=== PATIENT | male | born 1995 | race Hispanic/Latino ===

== ENCOUNTER 2019-05-27 15:12 | Inpatient (IN) | payer SELFPAY ==
[~2019-05-27 15:12] MED LIST: Dexamethasone 20 MG/5 ML VIAL ONE; Glycopyrrolate 0.2 MG/ML 5 ML SYRINGE ONE; Iopamidol-370 76% 500 ML 1 ML ONE; Lidocaine 1% PF 5 ML VIAL ONE; PHENYLEPHRINE-NS 100 MCG/ML 10 ML SYRINGE ONE; PROPOFOL 200 MG/20 ML VIAL ONE; Rocuronium Bromide 10 MG/ML (10ML VIAL) ONE; Succinylcholine Chloride 20 MG/ML 10 ml SYRINGE FS ONE
[2019-05-27 15:50] LABS: Hemoglobin 17.7 g/dL (14.0-18.0); Mean Corpuscular HGB CONC 34.2 g/dL (32.0-36.0); Mean Corpuscular Hemoglobin 29.9 pg (27.0-31.0); Mean Corpuscular Volume 87.3 fL (78.0-98.0); RBC Distribution Width 12.3 % (11.5-14.5); Red Blood Cell (RBC) Count 5.94 mill/uL (4.70-6.10); White Blood Cell (WBC) Count 12.4 thou/uL (4.8-10.8)
[2019-05-27] MEDS ORDERED: Piperacillin/Tazobactam 4.5 GM VIAL ONE (16:06)
[2019-05-27 16:15] LABS: Bilirubin Negative (Negative); Blood, Urine 1+ (Negative); Clarity Clear (Clear); Glucose, Urine (Dipstick) Normal (Negative); Leukocyte Negative Leu/uL (Negative); Nitrite Negative (Negative); Protein, Urine (Dipstick) 100 mg/dL (Neg-Trace); Squamous Epithelial 0-3 HPF (0-3); Urobilinogen Normal mg/dL (Less than 2)
[2019-05-27 16:16] LABS: Bacteria/HPF 1+ HPF (None Seen)
[2019-05-27 16:17] LABS: Band 53 % (5-11); Large Platelets SLIGHT; Lymphocytes 2 % (21-51); MDiff Complete? YES; Mean Platelet Volume 12.2 fL (7.4-10.4); Monocytes 2 % (0-10); Neutrophil 39 % (42-75); Ovalocytes SLIGHT = 2-5 cells (100X) (0-1/hpf); Platelet Count 117 thou/uL (130-400); Platelet Morphology Comment Appears Decreased; Reactive Lymphocytes 4 % (0-10); Reflex for Review?? YES
[2019-05-27 16:19] LABS: ALT (SGPT) 13 U/L (8-55); AST (SGOT) 20 U/L (5-34); Albumin 4.2 g/dL (3.5-5.0); Alkaline Phosphatase 71 U/L (40-110); Anion Gap 16 mmol/L (10-20); BUN (Urea Nitrogen) 24 mg/dL (8.9-20.6); Bilirubin, Total 1.2 mg/dL (0.2-1.2); Calc. Creatinine Clearance 0 mL/min (70-130); Calcium 9.7 mg/dL (7.8-10.44); Carbon Dioxide 23 mmol/L (22-29); Chloride 94 mmol/L (98-107); Estimated GFR-MDRD 47; Globulin 3.7 g/dL (2.4-3.5); Glucose 107 mg/dL (70-105); Lipase 7 U/L (8-78); Potassium 3.9 mmol/L (3.5-5.1); Protein, Total 7.9 g/dL (6.0-8.3); Sodium 129 mmol/L (136-145)
--- NOTE | 2019-05-27 16:31 | CT ---
CT ABDOMEN AND PELVIS WITH IV CONTRAST: Date: 05-27-2019 Provided Clinical History: Abdominal pain FINDINGS: The visualized lung bases are free of significant opacity. The solid abdominal organs demonstrate no significant abnormality. There is an appendicolith at the base of the appendix with marked distention of the appendix by fluid density associated with mural enhancement, compatible with acute appendicitis. There is diffuse flui d filled small bowel proximally. There is a somewhat focal area of transition to normal caliber bowel within the central pelvis. There is a small amount of free fluid present within the right parapelvic gutter and hepatorenal fossa. There is no evidence for pneumoperitoneum. There is no evidence for pn eumotosis or portal venous gas. The regional major vascular structures appear unremarkable. There is no evidence for regional lymphno de enlargement. The osseous structures demonstrate no concerning lytic or blastic lesions. A bone island is noted inv olving the left femoral neck anteriorly. IMPRESSION: 1. Findings compatible with acute appendicitis. 2. Conspicuous fluid distention of proximal small bowel, ileus versus possibly concurrent small bowel obstruction. POS: JANUSZ
[2019-05-27] MEDS ORDERED: Lidocaine 2% Jelly 5 ML TUBE ONE (17:14)
[2019-05-27] MEDS ORDERED: Fentanyl 100 MCG/2 ML VIAL ONE ×4 (17:14→19:51)
--- NOTE | 2019-05-27 18:12 | HP ---
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 He was evaluated by Dr. Mackey. He is noted to have a rigid abdomen. He underwent a CAT scan demonstrating findings consistent with acute appendicitis and ileus, distended small bowel. Exam reveals peritonitis, diffuse tenderness. Plan is for laparotomy, abdominal washout, appendectomy is indicated. The patient has acute kidney injury with elevated BUN and creatinine, hyponatremia, has received 2 L of fluid with another going in. ALLERGIES: NONE. TOBACCO: None. ALCOHOL: Socially. MEDICATIONS: None. PAST SURGICAL HISTORY: Noncontributory. PAST MEDICAL HISTORY: Noncontributory. PHYSICAL EXAMINATION: VITAL SIGNS: Heart rate 120, temperature 100.4 degrees, and blood pressure 160/80. HEAD, EARS, EYES, NOSE, AND THROAT: Unremarkable. LUNGS: Clear to auscultation. CARDIAC: Sinus tachycardia. ABDOMEN: Rigid, diffuse peritoneal signs, distended, and tympanitic. The patient can barely get out of bed to move to go to the bathroom. EXTREMITIES: Unremarkable. NEUROLOGIC: Intact. GCS 15. LYMPHS: No lymphadenopathy. LABORATORY DATA: Sodium 129, potassium 3.9, BUN 24, creatinine 1.76, and bilirubin 1.2. White count 12, hemoglobin 17, band count 53%. ASSESSMENT AND PLAN: Acute appendicitis rupture with peritonitis with acute kidney injury and dehydration, severe. Aggressively rehydrate. He has received Zosyn. Plan laparotomy, abdominal washout, appendectomy. He will need an NG tube, Meng perioperatively. I have used a Water Plant Maintenance Mechanic Service to explain these things to the patient. I had explained the risks of infection, bleeding, reoperation, blood transfusion. Questions answered. He consents. Job ID: [id number]
[2019-05-27] MEDS ORDERED: Ondansetron PF 4 MG/2 ML Vial IVP PRN ×2 (19:12→19:35)
[2019-05-27] MEDS ORDERED: Morphine 2 MG/ML SYRINGE SLOW IVP PRN (19:12)
[2019-05-27] MEDS ORDERED: hydrALAZINE 20 MG/ML VIAL SLOW IVP PRN (19:12)
[2019-05-27] MEDS ORDERED: Morphine 4 MG/ML VIAL SLOW IVP PRN (19:12)
[2019-05-27] MEDS ORDERED: Acetaminophen 650 MG Suppository PR PRN (19:16)
[2019-05-27] MEDS ORDERED: Ketorolac Tromethamine 30 MG/ML VIAL IVP PRN (19:16)
[2019-05-27] MEDS ORDERED: Acetaminophen 500 MG TAB PO PRN (19:16)
--- NOTE | 2019-05-27 19:28 | OP ---
DATE OF PROCEDURE: 05/27/2019 PREOPERATIVE DIAGNOSIS: Perforated appendicitis with peritonitis. POSTOPERATIVE DIAGNOSIS: Perforated appendicitis with peritonitis. PROCEDURES PERFORMED: Laparotomy, abdominal washout, appendectomy. ANESTHESIA: General. ESTIMATED BLOOD LOSS: Negligible. Wound left open for healing by secondary intention. Wound VAC application tomorrow. DESCRIPTION OF PROCEDURE: The patient was taken to the operating room, where under general anesthesia, NG tube was placed. Meng catheter placed. Abdomen clipped of hair, prepared with ChloraPrep and draped in routine fashion. Incision was made in the midline, centered about the umbilicus, carried down to the skin and subcutaneous tissue, entered the abdominal cavity sharply. There was abundant cloudy purulent material evacuated. Abdominal cavity irrigated. Irrigant evacuated. Appendix identified, acutely inflamed. Mesoappendix was taken down with the LigaSure. The stump of the appendix divided in the cecal stump with a CLOVIS blue load stapler. Stapled the cecal stump, hemostatic and secured. His appendix removed, noted to be perforated. The patient tolerated the procedure well. Abdominal cavity thoroughly irrigated with about 6 L of saline solution. Irrigant evacuated. Hemostasis was obtained. Instrument, sponge, and needle counts were correct. Midline fascia closed with #1 PDS. Skin and subcutaneous tissue irrigated and skin was loosely approximated with shala and a gauze dressing applied for wound VAC application tomorrow. Job ID: [id number]
[2019-05-27] MEDS ORDERED: Promethazine HCl 25 MG/ML VIAL SLOW IVP PRN (19:29)
[2019-05-27] MEDS ORDERED: Ondansetron HCl/PF 4 MG/2 ML Vial IVP PRN (19:29)
[2019-05-27] MEDS ORDERED: Promethazine HCl 25 MG/ML VIAL IM PRN ×2 (19:29→19:35)
[2019-05-27] MEDS ORDERED: Zolpidem Tartrate 5 MG TAB PO PRN (19:35)
[2019-05-27] MEDS ORDERED: diphenhydrAMINE 50 MG/ML VIAL IVP PRN (19:35)
[2019-05-27] MEDS ORDERED: Naloxone HCl 0.4 mg/ml Vial IV PRN (19:35)
[2019-05-27] MEDS ORDERED: diphenhydrAMINE 50 MG/ML VIAL IM PRN (19:35)
[2019-05-27] MEDS ORDERED: diphenhydrAMINE 25 MG CAP PO PRN (19:35)
[2019-05-27] MEDS ORDERED: Communication Order-Pharmacy FS SCH (19:45)
[2019-05-27] MEDS: Piperacillin/Tazobactam 4.5 GM in Sodium Chloride 0.9% 100 ML IVPB SCH (22:53)
[2019-05-27] MEDS: Sodium Chloride 0.9% 1,000 ML IV SCH (22:53)
[2019-05-27] MEDS: Enoxaparin Sodium 40 MG/0.4 ML SYRINGE SC SCH (22:53)
[2019-05-27 22:59] VITALS: BMI 21.3
[2019-05-28] MEDS: Piperacillin/Tazobactam 4.5 GM in Sodium Chloride 0.9% 100 ML IVPB SCH ×4 (04:37→22:19)
[2019-05-28] MEDS: Sodium Chloride 0.9% 1,000 ML IV SCH ×4 (04:39→20:16)
[2019-05-28] MEDS ORDERED: Chloraseptic Spray 180 ml Bottle PO PRN (05:06)
[2019-05-28 05:36] LABS: Anion Gap 11 mmol/L (10-20); BUN (Urea Nitrogen) 24 mg/dL (8.9-20.6); Calc. Creatinine Clearance 73 mL/min (70-130); Calcium 8.3 mg/dL (7.8-10.44); Carbon Dioxide 24 mmol/L (22-29); Chloride 106 mmol/L (98-107); Estimated GFR-MDRD 56; Glucose 132 mg/dL (70-105); Potassium 4.2 mmol/L (3.5-5.1); Sodium 137 mmol/L (136-145)
[2019-05-28 05:40] LABS: Band 42 % (5-11); Hemoglobin 14.6 g/dL (14.0-18.0); Large Platelets SLIGHT; Lymphocytes 1 % (21-51); MDiff Complete? YES; Mean Corpuscular HGB CONC 32.4 g/dL (32.0-36.0); Mean Corpuscular Hemoglobin 28.6 pg (27.0-31.0); Mean Corpuscular Volume 88.3 fL (78.0-98.0); Mean Platelet Volume 11.7 fL (7.4-10.4); Monocytes 6 % (0-10); Neutrophil 51 % (42-75); Platelet Count 120 thou/uL (130-400); RBC Distribution Width 12.5 % (11.5-14.5); White Blood Cell (WBC) Count 9.9 thou/uL (4.8-10.8)
[2019-05-28] MEDS ORDERED: FLU VACC QS2019-20(6MOS UP)/PF 60 MCG/0.5 ML SYRINGE IM ONE (09:00)
[2019-05-28] MEDS: Pantoprazole 40 MG VIAL IVP SCH (09:18)
--- NOTE | 2019-05-28 17:50 | PRG ---
DATE OF SERVICE: 05/28/2019 SUBJECTIVE: Jonas Tinsley is postoperative day #1, laparotomy for perforated appendicitis, peritonitis. Temperature 98.5 degrees, pulse 73, blood pressure 106/69. The patient's NG tube output is 500 in last 24 hours. Urine output is good. He is urinating on his own. His hemoglobin is 14.6, white count down to 9.9. He still has 42% bands. Basic metabolic profile is improved. BUN 24, creatinine 1.52. Continue hydration. OBJECTIVE: LUNGS: Clear to auscultation. CARDIAC: Regular rate and rhythm without murmur or gallop. ABDOMEN: Soft, nondistended. Postoperative tenderness. No peritoneal signs. EXTREMITIES: Unremarkable. ASSESSMENT AND PLAN: Sepsis, peritonitis, improved with intravenous antibiotics, abdominal washout, and appendectomy. He feels much better. Ileus persist. Continue NG tube. Meng has been removed after overnight placement. He is urinating fine. His activity level is good. He has a wound VAC on his abdomen. Job ID: [id number]
[2019-05-28] MEDS: Enoxaparin Sodium 40 MG/0.4 ML SYRINGE SC SCH (20:17)
[2019-05-29] MEDS: Sodium Chloride 0.9% 1,000 ML IV SCH ×3 (03:05→12:30)
[2019-05-29] MEDS: Piperacillin/Tazobactam 4.5 GM in Sodium Chloride 0.9% 100 ML IVPB SCH ×4 (03:05→21:10)
[2019-05-29] MEDS: fentaNYL Citrate/PF 2,000 MCG in Sodium Chloride 0.9% 60 ML IV PRN (04:21)
[2019-05-29] MEDS: Pantoprazole 40 MG VIAL IVP SCH (09:51)
--- NOTE | 2019-05-29 10:24 | PRG ---
DATE OF SERVICE: 05/29/2019 SUBJECTIVE: Jonas Tinsley is doing well. Today, he feels much better. OBJECTIVE: VITAL SIGNS: Temperature 98.5 degrees, heart rate 79, blood pressure 128/80. LUNGS: Clear to auscultation. CARDIAC: Regular rate and rhythm without murmur or gallop. ABDOMEN: Soft and quiet. No bowel sounds. Wound VAC in the midline wound. EXTREMITIES: No ankle edema. LABORATORY DATA: White count 9.9, hemoglobin 14.6. This was yesterday's labs. Labs will be rechecked tomorrow. Pathology report, pending. NG tube output 1800 mL in the last 24 hours. No flatus. No stool. Urine output is good. He is voiding spontaneously. ASSESSMENT AND PLAN: Postoperative ileus after ruptured appendicitis and peritonitis. Status post abdominal washout. Continue NG tube suction with ice chips and sips of water p.r.n. I have used a home restoration service cleaner service to explain things to him and answer his questions. He has a good activity level. Await GI function. Continue NG tube and IV antibiotics at this time. Job ID: [id number]
[2019-05-29] MEDS: Enoxaparin Sodium 40 MG/0.4 ML SYRINGE SC SCH (21:10)
[2019-05-30] MEDS: Sodium Chloride 0.9% 1,000 ML IV SCH ×4 (02:30→19:30)
[2019-05-30] MEDS: Piperacillin/Tazobactam 4.5 GM in Sodium Chloride 0.9% 100 ML IVPB SCH ×4 (04:21→21:11)
[2019-05-30 05:03] LABS: #Lymphocytes 0.6 thou/uL (1.20-3.40); #Monocytes 0.8 thou/uL (0.11-0.59); #Neutrophils 4.2 thou/uL (1.40-6.50); %Eosinophils 0.6 % (0.0-10.0); %Lymphocytes 9.9 % (21.0-51.0); %Monocytes 14.6 % (0.0-10.0); %Neutrophils 74.9 % (42.0-75.0); Hemoglobin 12.9 g/dL (14.0-18.0); Mean Corpuscular HGB CONC 33.9 g/dL (32.0-36.0); Mean Corpuscular Hemoglobin 29.8 pg (27.0-31.0); Mean Corpuscular Volume 87.9 fL (78.0-98.0); Mean Platelet Volume 8.9 fL (7.4-10.4); Platelet Count 182 thou/uL (130-400); RBC Distribution Width 12.5 % (11.5-14.5); Red Blood Cell (RBC) Count 4.32 mill/uL (4.70-6.10); White Blood Cell (WBC) Count 5.6 thou/uL (4.8-10.8)
[2019-05-30 05:29] LABS: Anion Gap 12 mmol/L (10-20); BUN (Urea Nitrogen) 25 mg/dL (8.9-20.6); Calc. Creatinine Clearance 103 mL/min (70-130); Calcium 8.4 mg/dL (7.8-10.44); Carbon Dioxide 26 mmol/L (22-29); Chloride 104 mmol/L (98-107); Estimated GFR-MDRD 83; Glucose 82 mg/dL (70-105); Potassium 3.4 mmol/L (3.5-5.1); Sodium 139 mmol/L (136-145)
[2019-05-30] MEDS: Pantoprazole 40 MG VIAL IVP SCH (09:08)
[2019-05-30] MEDS: fentaNYL Citrate/PF 2,000 MCG in Sodium Chloride 0.9% 60 ML IV PRN (09:30)
[2019-05-30] MEDS ORDERED: Sodium Chloride 0.9% 1,000 ML IV SCH (12:36)
[2019-05-30] MEDS ORDERED: Potassium Chloride 40 MEQ in Premix Bag 1 BAG IVPB SCH (13:30)
[2019-05-30] MEDS ORDERED: Potassium Chloride 20 MEQ in Lactated Ringer's 1,000 ML IV SCH (13:30)
[2019-05-30] MEDS ORDERED: Potassium Chloride 40 MEQ in Sodium Chloride 0.9% 250 ML 250 ML IVPB SCH (13:45)
--- NOTE | 2019-05-30 13:48 | PRG ---
DATE OF SERVICE: 05/30/2019 SUBJECTIVE: Jonas Tinsley is doing well today. He feels better. He reports minimal pain. Urine output is copious. IV fluids still running at 175 and decreased up to 50. He seems to be mobilizing fluid. Gastric output 24 hours noted above 750 mL. White count 5, hemoglobin 12. Basic metabolic profile normal with potassium of 3.4. OBJECTIVE: VITAL SIGNS: Temperature 99 degrees, pulse 81, blood pressure 131/76. LUNGS: Clear to auscultation. CARDIAC: Regular rate and rhythm without murmur or gallop. ABDOMEN: Soft, nondistended. He has not passed any stool or flatus. Abdomen is quiet. There are no appreciable bowel sounds. EXTREMITIES: Without edema. ASSESSMENT AND PLAN: Ileus after perforated appendicitis with fecal peritonitis. Continue intravenous antibiotics and fluids. Await GI function and continue NG tube. Hopefully, can remove it tomorrow, output is decreasing, perhaps GI function is improving. Job ID: [id number]
[2019-05-30] MEDS ORDERED: Lidocaine 1% w/Epinephrine 1:200K 30 ML VIAL ONE (16:25)
[2019-05-30] MEDS ORDERED: Bupivacaine HCl 0.5%/Epinephrine 1:200,000/PF 30 ml Vial IJ SCH (16:30)
[2019-05-30] MEDS ORDERED: Bupivacaine/Epinephrine 0.25% 30 ML VIAL IJ SCH (16:45)
[2019-05-30] MEDS: Enoxaparin Sodium 40 MG/0.4 ML SYRINGE SC SCH (21:01)
[2019-05-31] MEDS: Piperacillin/Tazobactam 4.5 GM in Sodium Chloride 0.9% 100 ML IVPB SCH ×4 (03:20→21:34)
[2019-05-31 05:16] LABS: Anion Gap 13 mmol/L (10-20); BUN (Urea Nitrogen) 21 mg/dL (8.9-20.6); Calc. Creatinine Clearance 97 mL/min (70-130); Carbon Dioxide 24 mmol/L (22-29); Chloride 105 mmol/L (98-107); Estimated GFR-MDRD 78; Potassium 3.8 mmol/L (3.5-5.1); Sodium 138 mmol/L (136-145)
[2019-05-31 05:17] LABS: Calcium 8.7 mg/dL (7.8-10.44); Glucose 81 mg/dL (70-105)
[2019-05-31] MEDS: Pantoprazole 40 MG VIAL IVP SCH (09:57)
[2019-05-31] MEDS ORDERED: traMADol HCl 50 MG TAB PO PRN ×2 (13:09)
[2019-05-31] MEDS ORDERED: Ibuprofen 600 MG TAB PO PRN (13:09)
--- NOTE | 2019-05-31 14:27 | PRG ---
DATE OF SERVICE: 05/31/2019 SUBJECTIVE: Mr. Tinsley is doing well today. He has passed flatus. He has had a bowel movement. He feels much better. This morning, his white count is 5 and hemoglobin is 12. His basic metabolic profile is normal. OBJECTIVE: VITAL SIGNS: Temperature 97 degrees, heart rate 63, blood pressure 132/77. NG tube output in the last 24 hours has been 700 mL, although he has had a bowel movement and passed gas. LUNGS: Clear to auscultation. CARDIAC: Regular rate and rhythm without murmur or gallop. ABDOMEN: Soft, nondistended, nontender. Bowel sounds present. Midline wound looks good. Wound VAC was removed and plan is to close it secondarily. ASSESSMENT/PLAN: 1. Closed wound secondarily at bedside. Leave the dressing until Monday and remove it Monday, he can leave the wound open. He can shower and bathe, washing the open wound with soap and water, leaving it open after that. He will have an appointment to see me in my office next week, . I will plan staple and suture removal please see discharge orders for discharge appointment date. 2. Ruptured appendicitis, ileus resolving. Remove NG tube. Advance diet. 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 Complete IV antibiotics today, discontinue in the morning. Begin oral antibiotics in the morning at home with Augmentin p.o. and Ultram p.r.n. pain. Avoid lifting over 25 to 30 pounds for 6 weeks postoperatively. covering the weekend and more likely the patient can go home in the next day or 2, pending clinical course. Job ID: [id number]
--- NOTE | 2019-05-31 14:41 | OP ---
DATE OF PROCEDURE: 05/31/2019 PREOPERATIVE DIAGNOSIS: Status post laparotomy for ruptured appendicitis with open wound with wound VAC. POSTOPERATIVE DIAGNOSIS: Status post laparotomy for ruptured appendicitis with open wound with wound VAC. PROCEDURE PERFORMED: Delayed planned secondary closure, skin and subcutaneous tissue at bedside. ANESTHESIA: 1% Xylocaine with epinephrine 30 mL mixed with 0.5% Marcaine 30 mL. DESCRIPTION OF PROCEDURE: The patient at bedside, his wound VAC was removed. His abdomen was prepared with Betadine and draped in routine fashion. A yam curer service was used to explain the procedure and answer questions. The patient consented. Wound prepared with Betadine, local anesthetic mixture infiltrated in skin and subcutaneous tissue. Wound was approximated with interrupted vertical mattress sutures of 3-0 nylon and sterile dressing applied. The patient tolerated the procedure well. Job ID: [id number]
[2019-05-31] MEDS: Enoxaparin Sodium 40 MG/0.4 ML SYRINGE SC SCH (21:34)
[2019-06-01] MEDS: Piperacillin/Tazobactam 4.5 GM in Sodium Chloride 0.9% 100 ML IVPB SCH (05:28)
[2019-06-01] MEDS ORDERED: Amoxicillin/Potassium Clav 875 MG TAB PO SCH (08:00)
[2019-06-01] MEDS: Enoxaparin Sodium 40 MG/0.4 ML SYRINGE SC SCH (20:30)
[2019-06-01] MEDS: Amoxicillin/Potassium Clav 875 MG TAB PO SCH (20:30)
--- NOTE | 2019-06-02 06:16 | PRG ---
DATE OF SERVICE: 06/01/2019 SUBJECTIVE: Mr. Tinsley is status post appendectomy. He has no specific complaints at the present time, other than he wants something better to eat. PHYSICAL EXAMINATION: LUNGS: Clear. HEART: He has regular rate and rhythm without tachycardia. VITAL SIGNS: Stable. He is afebrile. ABDOMEN: Nontender with positive bowel sounds. Abdominal dressing remains in place. IMPRESSION: He seems to be making satisfactory progress. PLAN: As per communication with Dr. Baldwin yesterday, I think the patient is ready to be discharged today. A better diet will be provided before he goes home. Discharge instructions were given to the patient by Dr. Baldwin. Job ID: [id number]
[2019-06-02] MEDS: Amoxicillin/Potassium Clav 875 MG TAB PO SCH (09:12)
[2019-06-02 09:55] VITALS: BP 121/73; TEMP 98.1
--- NOTE | 2019-06-03 12:48 | DIS ---
DATE OF ADMISSION: 05/27/2019 DATE OF DISCHARGE: 06/02/2019 PROCEDURES THIS HOSPITALIZATION: Laparotomy, abdominal washout, appendectomy, wound VAC treatment of open skin and subcutaneous tissue, delayed closure of wound at bedside, 05/31/2019. DISCHARGE INSTRUCTIONS: Follow up in my office next week for suture removal. HISTORY/HOSPITAL COURSE: A 24-year-old male, presents with neglected appendicitis. Seen in the emergency room, evaluated, and noted to have a rigid surgical abdomen. CAT scan confirms ruptured appendicitis. On admission, his white count was 12 and hemoglobin 17. He had 53% bands. He was resuscitated with fluid, given antibiotics, taken to the operating room for abdominal washout, laparotomy, and appendectomy. Postoperatively, treated with NG tube, n.p.o. until bowel function resumed, resuming GI function, tolerating a regular diet, and discharged to home with Augmentin 875 b.i.d. for 10 days. Follow up in my office in a week for suture removal. His abdominal wound, skin, and subcu tissue were closed in a delayed fashion. The wound looked good on closure. DIET AND ACTIVITY: As tolerated. No lifting over 25 pounds for 6 weeks. MEDICATIONS: Home with, 1. Tylenol. 2. Advil. 3. Ultram. 4. Augmentin. Job ID: [id number]
--- NOTE | 2019-06-03 22:34 | PQF ---
[employer] Reports Winform Viewer MARY ORDONEZ RICHARD D MD [id number] CLINICAL DOCUMENTATION CLARIFICATION FORM: POST DISCHARGE Addendum to original discharge summary date: ____ Late entry note date: __ DATE: 06/03/19 ATTN: Jonathon Baldwin Please exercise your independent, professional judgment in responding to the clarification form. Clinical indicators are provided on the bottom of this form for your review Can you please further clarify the diagnosis of the patient? Please check appropriate box(es): [yes ] Sepsis due to acute infectious appendicitis [ ] Sepsis due to acute non infectious appendicitis [ ] Acute non infectious appendicitis without sepsis [ ] Acute infectious appendicitis without sepsis [ yes] Other diagnosis please specify__peritonitis-SEE OP NOTE [ ] Unable to determine In addition, please specify: Present on Admission (POA): [ yes ] Yes [ ] No [ ] Unable to determine For continuity of documentation, please document condition throughout progress notes and discharge summary. Thank You. CLINICAL INDICATORS - SIGNS / SYMPTOMS / LABS PN 05/27- Sepsis,peritonitis, improved with intravenous antibiotics,abdominal washout and appendectomy H and P pg.1-3 days of lower abdominal pain H and P pg.1- Laboratory data White count 12 RISK FACTORS Acute kidney injury- H and P pg.1 Acute appendicitis rapture with peritonitis- H and P pg.1 Dehydration- H and P pg.1 TREATMENTS: Appendectomy- OP report pg.1 05/26 Abdomen/Pelvis 05/26 IV Fluids- MAR IV Antibiotics- MAR (This form is maintained as a part of the permanent medical record) 2014 [employer]. All Rights Reserved [email or web address]
== END 2019-06-02 12:00 | disposition home or self-care (01) | DRG 853 ==
LOC: ERS 15:12 → SDC 17:37 → SURG A 20:46
PROVIDERS: ADMIT Specialist; ATTEND Specialist
PROC: 0DTJ0ZZ Resection of Appendix, Open Approach (ICD-10-PCS; principal; 2019-05-27)
PROC: 0JQ80ZZ Repair Abdomen Subcutaneous Tissue and Fascia, Open Approach (ICD-10-PCS; 2019-05-31)
DX: A41.9 Sepsis, unspecified organism (principal); K35.33 Acute appendicitis with perforation, localized peritonitis, and gangrene, with abscess; N17.9 Acute kidney failure, unspecified; E87.1 Hypo-osmolality and hyponatremia; K56.7 Ileus, unspecified; E86.0 Dehydration
CPT/HCPCS: 36415; 74177; 80048; 80053; 81003; 81015; 83690; 85025; 85060; 88304; 96365; C9113; J1100; J1650; J2001; J2543; J2704; J3010; J3480; J3490; J7050; J7120; Q9967

== ENCOUNTER 2023-03-23 11:53 | Emergency (ER) | payer OTHER, SELFPAY ==
[2023-03-23] MEDS ORDERED: Ketorolac Tromethamine 30 MG (1 mL) VIAL ONE (12:16)
[2023-03-23 13:09] LABS: Bacteria/HPF None Seen HPF (None Seen); Bilirubin Negative (Negative); Blood, Urine Trace (Negative); CAUTI Indications for Culture Pelvic or flank pain; Clarity Clear (Clear); Glucose, Urine (Dipstick) Normal (Negative); Ketone, Urine Negative (Negative); Leukocyte Negative Leu/uL (Negative); Nitrite Negative (Negative); Protein, Urine (Dipstick) 200 mg/dL (Neg-Trace); RBC/HPF 0-3 HPF (0-3); Specific Gravity, Urine 1.011 (1.002-1.036); Squamous Epithelial None Seen HPF (0-3); Urobilinogen Normal mg/dL (Less than 2); WBC/HPF 0-3 HPF (0-3); pH, Urine 6.5 (5.0-9.0)
[2023-03-23 13:26] LABS: Urine Culture Reflex No No
== END 2023-03-23 14:07 | disposition home or self-care (01) ==
LOC: ERS 11:53
DX: M54.6 Pain in thoracic spine (principal); X50.1XXA Overexertion from prolonged static or awkward postures, initial encounter; Y99.0 Civilian activity done for income or pay
CPT/HCPCS: 81001; 96372; 99283; J1885